=== PATIENT | female | born 1960 | race Caucasian/White ===

== ENCOUNTER 2016-07-19 12:10 | Observation (INO) | payer OTHER ==
[~2016-07-19] VITALS: Ht 160 cm; Wt 48.0 kg
[~2016-07-19 12:10] MED LIST: AMAN100C18 PO; CLON1TAB PO; FING1CAP PO; GABA800T PO; NAME10TA PO; OXCA300T PO; ROPI1TAB PO
[2016-07-19 12:50] VITALS: BP 124/60; PULSE 94; RESP 16; TEMP 101.1; O2SAT 98
[2016-07-19] MEDS ORDERED: SODIUM CHLOR 0.9% 1000 ML INJ 800 ML IV ONE (13:11)
[2016-07-19] MEDS ORDERED: SODIUM CHLOR 0.9% 1000 ML INJ 1,000 ML IV ONE (13:11)
[2016-07-19] MEDS ORDERED: ACETAMINOPHEN 325 MG TAB PO ONE (13:15)
--- NOTE | 2016-07-19 13:52 | RADRPT ---
EXAM DATE/TIME: 07/19/2016 13:40 [facility] COMPARISON: No previous studies available for comparison. INDICATIONS : Altered mental status. Slurred speech. RADIATION DOSE: 37.62 CTDIvol (mGy) MEDICAL HISTORY : Multiple sclerosis. SURGICAL HISTORY : Appendectomy. ENCOUNTER: Initial ACUITY: 1 day PAIN SCALE: 0/10 LOCATION: cranial TECHNIQUE: Multiple contiguous axial images were obtained of the head. Using automated exposure control and adj ustment of the mA and/or kV according to patient size, radiation dose was kept as low as reasonably a chievable to obtain optimal diagnostic quality images. FINDINGS: CEREBRUM: The ventricles are normal for age. No evidence of midline shift, mass lesion, hemorrhage or acute in farction. No extra-axial fluid collections are seen. POSTERIOR FOSSA: The cerebellum and brainstem are intact. The 4th ventricle is midline. The cerebellopontine angle i s unremarkable. EXTRACRANIAL: The visualized portion of the orbits is intact. SKULL: The calvaria is intact. No evidence of skull fracture. CONCLUSION: Normal examination for a patient of this age. Dave Holm MD on July 19, 2016 at 13:47 Board Certified Radiologist. This report was verified electronically.
[2016-07-19 14:28] LABS: AUTOMATED NEUTROPHIL # 5.3 TH/MM3 (1.8-7.7); BASOPHIL % 0.4 % (0.0-2.0); EOSINOPHIL % 0.1 % (0.0-4.0); HEMATOCRIT 38.1 % (35.0-46.0); LYMPHOCYTE # 1.3 TH/MM3 (1.0-4.8); MEAN CELL VOLUME 92.3 FL (80.0-100.0); MEAN CORPUSCULAR HEMOGLOBIN 31.1 PG (27.0-34.0); MEAN CORPUSCULAR HGB CONC 33.7 % (32.0-36.0); MONO % 26.7 % (0.0-8.0); NEUT % 58.8 % (16.0-70.0); PLATELET COUNT 233 TH/MM3 (150-450); RED BLOOD COUNT 4.13 MIL/MM3 (4.00-5.30); RED CELL DISTRIBUTION WIDTH 13.3 % (11.6-17.2)
[2016-07-19 14:31] LABS: APTT (PATIENT) 32.1 SEC (24.3-30.1); PROTHROMBIN TIME - PATIENT 11.1 SEC (9.8-11.6)
[2016-07-19 14:38] LABS: ALT (GPT) 33 U/L (10-53); ANION GAP 7 MEQ/L (5-15); AST (GOT) 25 U/L (15-37); BICARBONATE 29.3 MEQ/L (21.0-32.0); BLOOD UREA NITROGEN 9 MG/DL (7-18); CHLORIDE 101 MEQ/L (98-107); GLOMERULAR FILTRATION RATE 62 ML/MIN (>89); HEMO FLAGS AUTO DIFF; POTASSIUM 4.2 MEQ/L (3.5-5.1); SODIUM (NA) 137 MEQ/L (136-145)
[2016-07-19 14:40] LABS: ALKALINE PHOSPHATASE 120 U/L (45-117); TOTAL BILIRUBIN ADULT 0.3 MG/DL (0.2-1.0)
--- NOTE | 2016-07-19 14:40 | RADRPT ---
EXAM DATE/TIME: 07/19/2016 13:55 [facility] COMPARISON: No previous studies available for comparison. INDICATIONS : Fever, sore throat. Pt. has difficulty swallowing. MEDICAL HISTORY : None. SURGICAL HISTORY : None. ENCOUNTER: Initial ACUITY: 2 days PAIN SCORE: 0/10 LOCATION: Bilateral chest FINDINGS: A single view of the chest demonstrates the lungs to be symmetrically aerated without evidence of mas s, infiltrate or effusion. The cardiomediastinal contours are unremarkable. Osseous structures are intact. CONCLUSION: 1. No acute cardiopulmonary findings. Lenin Grajeda MD on July 19, 2016 at 14:35 Board Certified Radiologist. This report was verified electronically.
[2016-07-19 15:52] LABS: BANDS 37 % (0-6); METAMYELOCYTES 1 % (0-1); POLYS (SEG NEUTROPHILS) 29 % (16-70); SCAN/DIFF FINAL DIFF MANUAL; TOXIC GRANULATION 1+ (NORMAL); WBC DIFF SAMPLE 100
[2016-07-19 15:53] LABS: PLATELET MORPHOLOGY NORMAL (NORMAL); SLIDE REVIEW N; TOXIC VACUOLATION PRESENT (NONE SEEN)
--- NOTE | 2016-07-19 16:16 | EKG ---
Date Performed: 07/19/2016 Time Performed: 13:20:41 PTAGE: 56 years EKG: Sinus rhythm WITH SHORT AL INTERVAL BORDERLINE ECG INTERPRETATION BASED ON A DEFAULT AGE OF 40 YEARS COMPARED TO PRIOR ELECTROCARDIOGRAM, At most borderline nonspecific ST segment changes are seen. PREVIOUS TRACING : 07/08/2016 14.14 DOCTOR: Jorge Elise Interpretating Date/Time 07/19/2016 16:14:56
--- NOTE | 2016-07-19 16:39 | PD ---
HPI Chief Complaint: Altered Mental Status Time Seen by Provider: 13:31 Travel History International Travel<30 days: No Contact w/Intl Traveler<30days: No Traveled to known affect area: No History of Present Illness HPI 56-year-old female presents by ambulance from the halfway with altered mental status and slurred speech by report. Patient here has a fever of 101 but denies specific complaints. History is limited on initial evaluation. PFSH Past Medical History Narrative Medical By records Dementia: Yes Hypertension: Yes Neurologic: Yes (hx of ms) : 0 Past Surgical History Narrative Surgical By records Appendectomy: Yes Other Surgery: Yes (breast augmentation) Social History Alcohol Use: Yes (1/month) Tobacco Use: No Substance Use: No Allergies-Medications (Allergen,Severity, Reaction): Coded Allergies: No Known Allergies (Verified , 07/19/16) Reported Meds & Prescriptions Reported Meds & Active Scripts Active Reported Keppra (Levetiracetam) 500 Mg Tab 500 Mg PO BID Calcium + D3 (Calcium Carbonate-Cholecalciferol) 600-200 Mg-Unit Tab 1 Tab PO DAILY Ropinirole 1 Mg Tab 1 Mg PO TID Namenda (Memantine) 10 Mg Tab 10 Mg PO BID Gabapentin 800 Mg Tab 800 Mg PO BID Gilenya (Fingolimod) 0.5 Mg Cap PO DAILY PRN Amantadine (Amantadine HCl) 100 Mg Cap 100 Mg PO DAILY Clonazepam 1 Mg Tab 1 Mg PO HS Review of Systems ROS Limitations: Poor Historian Except as stated in HPI: all other systems reviewed are Neg Physical Exam Narrative GENERAL: Well-nourished, well-developed patient. SKIN: Warm and dry. HEAD: Normocephalic and atraumatic. EYES: No injection or drainage. ENT: No nasal drainage noted. Bilateral TMs clear, mild erythema noted to posterior oropharynx without exudate, uvula midline NECK: Supple, trachea midline. No meningeal signs CARDIOVASCULAR: Regular rate and rhythm RESPIRATORY: No increased effort. Clear to auscultation bilaterally, No accessory muscle use. GASTROINTESTINAL: Abdomen soft, non-tender, nondistended. NEUROLOGICAL: Awake and alert. Motor and sensory grossly within normal limits. Normal speech. Data Data Last Documented VS Vital Signs Date Time Temp Pulse Resp B/P Pulse Ox O2 Delivery O2 Flow Rate FiO2 07/19/16 12:50 101.1 94 16 124/60 98 Orders Electrocardiogram (07/19/16 13:11) Complete Blood Count With Diff (07/19/16 13:11) Comprehensive Metabolic Panel (07/19/16 13:11) Prothrombin Time / Inr (Pt) (07/19/16 13:11) Act Partial Throm Time (Ptt) (07/19/16 13:11) Lactic Acid Sepsis Protocol (07/19/16 13:11) Phosphorus (Po4) (07/19/16 13:11) Urinalysis - C+S If Indicated (07/19/16 13:11) Blood Culture (07/19/16 13:11) Chest, Single Ap (07/19/16 13:11) Blood Glucose (07/19/16 13:11) Ecg Monitoring (07/19/16 13:11) Iv Access Insert/Monitor (07/19/16 13:11) Oximetry (07/19/16 13:11) Acetaminophen (Tylenol) (07/19/16 13:15) Ct Brain W/O Iv Contrast(Rout) (07/19/16 13:11) Sodium Chlor 0.9% 1000 Ml Inj (Ns 1000 M (07/19/16 13:11) Sodium Chlor 0.9% 1000 Ml Inj (Ns 1000 M (07/19/16 13:11) Ammonia (07/19/16 13:11) Cath For Specimen (07/19/16 14:35) Vancomycin Inj (Vancomycin Inj) (07/19/16 17:05) Cefepime Inj (Maxipime Inj) (07/19/16 17:05) Influenzae A/B Antigen (07/19/16 17:05) Group A Rapid Strep Screen (07/19/16 17:05) Admit Order (Ed Use Only) (07/19/16 17:08) Labs Laboratory Tests Test 07/19/16 07/19/16 14:05 16:38 White Blood Count 9.0 TH/MM3 Red Blood Count 4.13 MIL/MM3 Hemoglobin 12.8 GM/DL Hematocrit 38.1 % Mean Corpuscular Volume 92.3 FL Mean Corpuscular Hemoglobin 31.1 PG Mean Corpuscular Hemoglobin 33.7 % Concent Red Cell Distribution Width 13.3 % Platelet Count 233 TH/MM3 Mean Platelet Volume 7.8 FL Neutrophils (%) (Auto) 58.8 % Lymphocytes (%) (Auto) 14.0 % Monocytes (%) (Auto) 26.7 % Eosinophils (%) (Auto) 0.1 % Basophils (%) (Auto) 0.4 % Neutrophils # (Auto) 5.3 TH/MM3 Lymphocytes # (Auto) 1.3 TH/MM3 Monocytes # (Auto) 2.4 TH/MM3 Eosinophils # (Auto) 0.0 TH/MM3 Basophils # (Auto) 0.0 TH/MM3 CBC Comment AUTO DIFF Differential Total Cells 100 Counted Neutrophils % (Manual) 29 % Band Neutrophils % 37 % Lymphocytes % 9 % Monocytes % 24 % Neutrophils # (Manual) 6.0 TH/MM3 Metamyelocytes 1 % Differential Comment FINAL DIFF MANUAL Toxic Granulation 1+ Toxic Vacuolation PRESENT Platelet Morphology Comment NORMAL Red Cell Morphology Comment NORMAL Prothrombin Time 11.1 SEC Prothromb Time International 1.0 RATIO Ratio Activated Partial 32.1 SEC Thromboplast Time Sodium Level 137 MEQ/L Potassium Level 4.2 MEQ/L Chloride Level 101 MEQ/L Carbon Dioxide Level 29.3 MEQ/L Anion Gap 7 MEQ/L Blood Urea Nitrogen 9 MG/DL Creatinine 0.93 MG/DL Estimat Glomerular Filtration 62 ML/MIN Rate Random Glucose 97 MG/DL Lactic Acid Level 0.9 mmol/L Calcium Level 9.2 MG/DL Phosphorus Level 3.3 MG/DL Total Bilirubin 0.3 MG/DL Aspartate Amino Transf 25 U/L (AST/SGOT) Alanine Aminotransferase 33 U/L (ALT/SGPT) Alkaline Phosphatase 120 U/L Ammonia LESS THAN 10 MCMOL/L Total Protein 7.6 GM/DL Albumin 4.2 GM/DL Urine Color LIGHT-YELLOW Urine Turbidity CLEAR Urine pH 7.0 Urine Specific [place] 1.006 Urine Protein NEG mg/dL Urine Glucose (UA) NEG mg/dL Urine Ketones NEG mg/dL Urine Occult Blood NEG Urine Nitrite NEG Urine Bilirubin NEG Urine Urobilinogen LESS THAN 2.0 MG/DL Urine Leukocyte Esterase NEG Urine RBC LESS THAN 1 /hpf Urine Mucus FEW /lpf Microscopic Urinalysis Comment CATH-CULT NOT IND MDM Medical Decision Making Medical Screen Exam Complete: Yes Emergency Medical Condition: Yes Medical Record Reviewed: Yes (past history confirmed) Interpretation(s) CBC & BMP Diagram 07/19/16 14:05 Last [address] 1/4/17 1311 Signed Impressions: Service Date/Time: Tuesday, July 19, 2016 13:40 - CONCLUSION: Normal examination for a patient of this age. Dave Holm MD Chest X-Ray 07/19/161310 Signed Impressions: Service Date/Time: Tuesday, July 19, 2016 13:55 - CONCLUSION: 1. No acute cardiopulmonary findings. Lenin Grajeda MD Differential Diagnosis UTI, intracranial, pneumonia, sepsis, hyponatremia.... Narrative Course Will check blood work, urinalysis, chest x-ray, CT brain and dose with IV fluid hydration and Tylenol and reevaluate Blood work reveals normal lactate and white count. Chest x-ray shows no source of infection. Awaiting urinalysis Patient's initial urinalysis was accidentally discarded so getting repeat UA took longer and this resulted in delay of admission Differential resulted with 37 bands. Given this and fever of 101 will dose with vancomycin and cefepime and place in observation so blood cultures can be monitored. Will add on strep and influenza given patient states she's been having URI symptoms additionally over the past couple of days. Patient agrees to observation and feeling better after tylenol and ivf Sepsis Criteria SIRS Criteria (2 or more): Temp > 100.9 or < 96.8, Heart rate over 90 Sepsis Criteria (SIRS+source): Infect source susp/known Physician Communication Physician Communication dr fonseca agrees to observation Diagnosis Primary Impression: Sepsis Qualified Code: A41.9 - Sepsis, due to unspecified organism Additional Impressions: Bandemia Upper respiratory infection Qualified Code: J06.9 - Upper respiratory tract infection, unspecified type Admitting Information Admitting Physician Requests: Observation Emmy Sinclair MD Jul 19, 2016 16:39
[2016-07-19 16:55] LABS: BLOOD, URINE NEG (NEG); COMMENT (UR) CATH-CULT NOT IND; CULTURE IF INDICATED CATH CULTURE NOT IND; GLUCOSE,URINE NEG (NEG); KETONE, URINE NEG (NEG); MUCUS URINE FEW /lpf (OCC); NITRITE,URINE NEG (NEG); URINE COLOR LIGHT-YELLOW (YELLW/STRAW)
[2016-07-19] MEDS ORDERED: CEFEPIME INJ 2,000 MG in SODIUM CHLORIDE 0.9% INJ 100 ML IV STA (17:05)
[2016-07-19] MEDS ORDERED: VANCOMYCIN INJ 1,000 MG in SODIUM CHLOR 0.9% 250 ML INJ 250 ML IV STA (17:05)
[2016-07-19] MEDS ORDERED: LEVE500 PO (17:27)
[2016-07-19] MEDS ORDERED: CALC600T10 PO (17:27)
[2016-07-19] MEDS ORDERED: SENNOSIDES 8.6 MG TAB PO PRN (18:30)
[2016-07-19] MEDS ORDERED: NALOXONE HCL 0.4 MG/ML AMP IV PRN (18:30)
[2016-07-19] MEDS ORDERED: MAGNESIUM HYDROXIDE SUSP 30 ML CUP PO PRN (18:30)
[2016-07-19] MEDS ORDERED: ACETAMINOPHEN 325 MG TAB PO PRN (18:30)
[2016-07-19] MEDS ORDERED: BISACODYL 10 MG SUPP PR PRN (18:30)
[2016-07-19] MEDS ORDERED: SODIUM CHLORIDE 0.9% FLUSH 5 ML FLUSH FLUSH PRN (18:30)
[2016-07-19 18:43] VITALS: BP 91/54; PULSE 70; RESP 17; O2SAT 98
[2016-07-19] MEDS: DOCUSATE SODIUM 100 MG CAP PO SCH (21:00)
[2016-07-19] MEDS: SODIUM CHLORIDE 0.9% FLUSH 5 ML FLUSH FLUSH SCH (21:42)
[2016-07-19] MEDS ORDERED: RESP: ALBUTEROL 2.5 MG/IPRATROPIUM 0.5 MG NEB (PRN) NEB (22:15)
--- NOTE | 2016-07-19 22:15 | HHI.HP ---
[facility] Primary [facility] Physician Unknown Admission Diagnosis fever Diagnoses: Chief Complaint: Urinary incontinence and cough Travel History International Travel<30 Days: No Contact w/Intl Traveler <30 Da: No Traveled to Known Affected Are: No History of Present Illness 56-year-old female with a history of MS presented to the ED with complaints of urinary incontinence, sore throat and cough for 2 days. Patient states for the last 2 days she has been trying to hold her urine output has been unable to and has had incontinent episodes, along with a sore throat and cough with sputum production. She states she did have a fever at home but does not know how high. Complains of loss of appetite and has been unable to eat for the last day or 2 with nausea. She denies any chest pain, short of breath, vomiting or diarrhea. She has not been on recent antibiotics. Current sees Dr. Patel for her MS Review of Systems Constitutional: COMPLAINS OF: Fever, DENIES: Chills, Dizziness Respiratory: COMPLAINS OF: Cough, Sputum production, DENIES: Wheezing, Shortness of breath Cardiovascular: DENIES: Chest pain, Lower Extremity Edema Gastrointestinal: COMPLAINS OF: Nausea, DENIES: Abdominal pain, Vomiting Genitourinary: COMPLAINS OF: Urinary incontinence, DENIES: Dysuria Musculoskeletal: DENIES: Back pain, Neck pain Integumentary: DENIES: Rash Hematologic/lymphatic: DENIES: Lymphadenopathy Immunologic/allergic: DENIES: Urticaria Past Family Social History Past Medical History MS- patient sees Dr. Patel Past Surgical History Breast augmentation Reported Medications Reported Meds & Active Scripts Active Reported Keppra (Levetiracetam) 500 Mg Tab 500 Mg PO BID Calcium + D3 (Calcium Carbonate-Cholecalciferol) 600-200 Mg-Unit Tab 1 Tab PO DAILY Ropinirole 1 Mg Tab 1 Mg PO TID Namenda (Memantine) 10 Mg Tab 10 Mg PO BID Gabapentin 800 Mg Tab 800 Mg PO BID Gilenya (Fingolimod) 0.5 Mg Cap PO DAILY PRN Amantadine (Amantadine HCl) 100 Mg Cap 100 Mg PO DAILY Clonazepam 1 Mg Tab 1 Mg PO HS Allergies: Coded Allergies: No Known Allergies (Verified , 07/19/16) Active Ordered Medications Current Medications Medications (Trade) Dose Ordered Sig/Feliberto Route Start Time Stop Time Status Last Admin (NS Flush) 2 ml UNSCH PRN FLUSH 07/19/16 18:30 (NS Flush) 2 ml BID FLUSH 07/19/16 21:00 07/19/16 21:42 (Tylenol) 650 mg Q4H PRN PO 07/19/16 18:30 (Dulcolax Supp) 10 mg DAILY PRN [place] 07/19/16 18:30 (Colace) 100 mg Q12H PO 07/19/16 21:00 (Milk Of Magnesia Liq) 30 ml Q12H PRN PO 07/19/16 18:30 (Senokot) 17.2 mg Q12H PRN PO 07/19/16 18:30 Naloxone HCl 0.4 mg 0.4 mg UNSCH PRN IV 07/19/16 18:30 (Maxipime Inj/NS Inj) 100 ml @ 200 mls/hr Q8H IV 07/20/16 06:00 UNV Family History Brother: Colon cancer Social History Patient denies any tobacco, alcohol or illicit drug use Physical Exam Vital Signs Vital Signs Date Time Temp Pulse Resp B/P Pulse Ox O2 Delivery O2 Flow Rate FiO2 07/19/16 18:43 70 17 91/54 98 Room Air 07/19/16 12:50 101.1 94 16 124/60 98 Physical Exam GENERAL: This is a well-nourished, well-developed patient, in no apparent distress. SKIN: No rashes, ecchymoses or lesions. Cool and dry. HEAD: Atraumatic. Normocephalic. EYES: Pupils equal round and reactive ENT: Nose without bleeding, purulent drainage or septal hematoma. Throat without erythema, tonsillar hypertrophy or exudate. Uvula midline. Airway patent. NECK: Trachea midline. No JVD . CARDIOVASCULAR: Regular rate and rhythm without murmurs, gallops, or rubs. RESPIRATORY: Diminished bilateral bases. No wheezes. GASTROINTESTINAL: Abdomen soft, non-tender, nondistended. No hepato-splenomegaly , or palpable masses. No guarding. MUSCULOSKELETAL: Extremities without clubbing, cyanosis, or edema. No joint tenderness, effusion, or edema noted. No calf tenderness. NEUROLOGICAL: Awake and alert. Cranial nerves II through XII intact. Motor and sensory grossly within normal limits. Five out of 5 muscle strength in all muscle groups. Normal speech. Laboratory Laboratory Tests Test 07/19/16 07/19/16 14:05 16:38 White Blood Count 9.0 Red Blood Count 4.13 Hemoglobin 12.8 Hematocrit 38.1 Mean Corpuscular Volume 92.3 Mean Corpuscular Hemoglobin 31.1 Mean Corpuscular Hemoglobin 33.7 Concent Red Cell Distribution Width 13.3 Platelet Count 233 Mean Platelet Volume 7.8 Neutrophils (%) (Auto) 58.8 Lymphocytes (%) (Auto) 14.0 Monocytes (%) (Auto) 26.7 Eosinophils (%) (Auto) 0.1 Basophils (%) (Auto) 0.4 Neutrophils # (Auto) 5.3 Lymphocytes # (Auto) 1.3 Monocytes # (Auto) 2.4 Eosinophils # (Auto) 0.0 Basophils # (Auto) 0.0 CBC Comment AUTO DIFF Differential Total Cells 100 Counted Neutrophils % (Manual) 29 Band Neutrophils % 37 Lymphocytes % 9 Monocytes % 24 Neutrophils # (Manual) 6.0 Metamyelocytes 1 Differential Comment FINAL DIFF MANUAL Toxic Granulation 1+ Toxic Vacuolation PRESENT Platelet Morphology Comment NORMAL Red Cell Morphology Comment NORMAL Prothrombin Time 11.1 Prothromb Time International 1.0 Ratio Activated Partial 32.1 Thromboplast Time Sodium Level 137 Potassium Level 4.2 Chloride Level 101 Carbon Dioxide Level 29.3 Anion Gap 7 Blood Urea Nitrogen 9 Creatinine 0.93 Estimat Glomerular Filtration 62 Rate Random Glucose 97 Lactic Acid Level 0.9 Calcium Level 9.2 Phosphorus Level 3.3 Total Bilirubin 0.3 Aspartate Amino Transf 25 (AST/SGOT) Alanine Aminotransferase 33 (ALT/SGPT) Alkaline Phosphatase 120 Ammonia LESS THAN 10 Total Protein 7.6 Albumin 4.2 Urine Color LIGHT-YELLOW Urine Turbidity CLEAR Urine pH 7.0 Urine Specific [place] 1.006 Urine Protein NEG Urine Glucose (UA) NEG Urine Ketones NEG Urine Occult Blood NEG Urine Nitrite NEG Urine Bilirubin NEG Urine Urobilinogen LESS THAN 2.0 Urine Leukocyte Esterase NEG Urine RBC LESS THAN 1 Urine Mucus FEW Microscopic Urinalysis Comment CATH-CULT NOT IND Date/Time Procedure Status Source Growth 07/19/16 18:00 Group A Streptococcus Screen (LISA) - Final Complete Throat 07/19/16 18:00 Group A Streptococcus Screen Received Throat Pending 07/19/16 14:05 Aerobic Blood Culture Received Blood Peripheral Pending 07/19/16 14:05 Anaerobic Blood Culture Received Blood Peripheral Pending Result Diagram: 07/19/16 1405 07/19/16 1405 Imaging Last Impressions Head CT 07/19/16 1311 Signed Impressions: Service Date/Time: Tuesday, July 19, 2016 13:40 - CONCLUSION: Normal examination for a patient of this age. Dave Holm MD Chest X-Ray 07/19/16 1311 Signed Impressions: Service Date/Time: Tuesday, July 19, 2016 13:55 - CONCLUSION: 1. No acute cardiopulmonary findings. Lenin Grajeda MD Assessment and Plan Problem List: (1) Upper respiratory infection ICD Code: J06.9 Status: Acute (2) Bandemia ICD Code: D72.825 Status: Acute (3) MS (multiple sclerosis) ICD Code: G35 Status: Acute Assessment and Plan 56-year-old female with a history of MS presented with URI Chest x-ray: Unremarkable -Throat culture and flu pending -Sputum culture ordered -DuoNeb's every 6/ and prn Bandemia Labs reviewed: Band neutrophils 37, lactic acid .9 -Blood cultures pending -CBC in a.m. -Broad-spectrum antibiotic started cefepime every 8 -Vancomycin IV given 1 the ED Urinary incontinence, patient with a history of MS UA negative -Consult neurology for recommendations, patient and Dr. Patel DVT prophylaxis: SCDs Written by Laura THOMAS, acting as scribe for Dr. Lowry on 07/19/16 at 2120. The documentation accurately reflects the work performed [id number] and decisions made by me and the physician Dr Lowry on 07/19/16. The documentation accurately reflects the work performed [id number] by me Dr Lowry on 07/19/16. Problem Qualifiers (1) Upper respiratory infection: Qualified Code: J06.9 - Upper respiratory tract infection, unspecified type Laura Pickett Jul 19, 2016 22:15 Annabel Lowry MD Jul 20, 2016 04:51
[2016-07-19 22:49] VITALS: BP 93/58; PULSE 72
[2016-07-19 23:00] VITALS: BP 85/53; PULSE 70
[2016-07-20] VITALS (10 sets, daily range): BP systolic 87–111; BP diastolic 52–58; PULSE 68–90; RESP 18–20; TEMP 96.5–99.1; O2SAT 96–100
[2016-07-20] MEDS: RESP: ALBUTEROL 2.5 MG/IPRATROPIUM 0.5 MG NEB (SCH) NEB ×3 (03:58→17:55)
[2016-07-20] MEDS: CEFEPIME INJ 2,000 MG in SODIUM CHLORIDE 0.9% INJ 100 ML IV SCH ×3 (06:19→22:18)
[2016-07-20 07:49] LABS: HEMATOCRIT 32.4 % (35.0-46.0); MEAN CELL VOLUME 92.4 FL (80.0-100.0); MEAN CORPUSCULAR HEMOGLOBIN 31.3 PG (27.0-34.0); MEAN CORPUSCULAR HGB CONC 33.8 % (32.0-36.0); PLATELET COUNT 202 TH/MM3 (150-450); RED BLOOD COUNT 3.51 MIL/MM3 (4.00-5.30); RED CELL DISTRIBUTION WIDTH 13.5 % (11.6-17.2); WHITE BLOOD COUNT 5.1 TH/MM3 (4.0-11.0)
[2016-07-20 08:04] LABS: HEMO FLAGS AUTO DIFF
[2016-07-20 08:26] LABS: BICARBONATE 24.7 MEQ/L (21.0-32.0); POTASSIUM 3.4 MEQ/L (3.5-5.1)
[2016-07-20] MEDS: DOCUSATE SODIUM 100 MG CAP PO SCH ×2 (09:00→22:17)
[2016-07-20 09:18] LABS: BANDS 4 % (0-6); NEUTROPHIL # MANUAL DIFF 2.7 TH/MM3 (1.8-7.7); POLYS (SEG NEUTROPHILS) 49 % (16-70); WBC DIFF SAMPLE 100
[2016-07-20 09:19] LABS: PLATELET ESTIMATE SMEAR NORMAL (NORMAL); PLATELET MORPHOLOGY NORMAL (NORMAL); SCAN/DIFF FINAL DIFF MANUAL
[2016-07-20] MEDS: SODIUM CHLORIDE 0.9% FLUSH 5 ML FLUSH FLUSH SCH ×2 (09:52→22:17)
--- NOTE | 2016-07-20 11:14 | HHI.PR ---
Subjective Remarks Patient laying in bed, denied dizziness or lightheaded or any seizure episodes, no dysuria, she has a sore throat no fever overnight Last fever of 101.1 on July 19 at noon Objective Vitals Vital Signs Date Time Temp Pulse Resp B/P Pulse Ox O2 Delivery O2 Flow Rate FiO2 07/20/16 08:00 98.3 71 18 90/54 96 07/20/16 03:44 97.7 71 20 90/52 99 07/20/16 01:31 68 07/20/16 00:35 96.5 72 18 87/55 98 07/20/16 00:19 99.1 72 18 91/53 100 Room Air 07/19/16 23:00 70 85/53 07/19/16 22:49 72 93/58 07/19/16 18:43 70 17 91/54 98 Room Air 07/19/16 12:50 101.1 94 16 124/60 98 I/O 07/19/16 07/19/16 07/19/16 07/20/16 07/20/16 07/20/16 06:59 14:59 22:59 06:59 14:59 22:59 Intake Total 240 ml Output Total 1 ml Balance 239 ml Intake Oral 240 ml Output Stool Total 1 ml # Voids 5 Result Diagram: 07/20/16 0640 07/20/16 0640 Objective Remarks GENERAL: This is a well-nourished, well-developed patient, in no apparent distress. SKIN: No rashes, warm and dry HEAD: Atraumatic. Normocephalic. EYES: Pupils equal round and reactive. Extraocular motions intact. No scleral icterus. ENT: Nose without bleeding, or drainage, Airway patent. NECK: Trachea midline. Supple CARDIOVASCULAR: Regular rate and rhythm without murmurs, gallops, or rubs. RESPIRATORY: Fair air entry bilaterally. No wheezes, rales, or rhonchi. GASTROINTESTINAL: Abdomen soft, non-tender, nondistended. Positive bowel sounds MUSCULOSKELETAL: Extremities without clubbing, cyanosis, or edema. Pedal pulses appreciated NEUROLOGICAL: Awake and alert. Moves all extremity. Normal speech.no focal neurological deficit A/P Problem List: (1) Upper respiratory infection ICD Code: J06.9 Status: Acute (2) Bandemia ICD Code: D72.825 Status: Acute (3) MS (multiple sclerosis) ICD Code: G35 Status: Acute Assessment and Plan 56-year-old female with a history of MS [facility] with a history of uncontrolled seizure over there also questionable fever and upper respiratory infection Episode of uncontrolled seizure patient has a history of MS follow up with Dr. Patel Per the parents who are at the bedside she has been tried on different antiseizure medication however it has not been working, awaiting neurology Dr. Patel auscultation URI Chest x-ray: Unremarkable -Throat culture and flu negative for group A streptococcal -Sputum culture pending -DuoNeb's every 6/ and prn Bandemia: Resolved Labs reviewed: Band neutrophils 37 which become for today, lactic acid 0.9 -Blood cultures pending -CBC today reviewed -Broad-spectrum antibiotic started cefepime every 8 -Vancomycin IV given 1 the ED, will hold on Vanco and monitor blood culture Urinary incontinence, patient with a history of MS UA negative -Consult neurology for recommendations, patient and Dr. Patel DVT prophylaxis: SCDs Problem Qualifiers (1) Upper respiratory infection: Qualified Code: J06.9 - Upper respiratory tract infection, unspecified type Abelardo Casey MD Jul 20, 2016 11:14
--- NOTE | 2016-07-20 16:57 | MB ---
cc: LENORA KOENIG MD DATE OF CONSULTATION 07/20/16 HISTORY OF PRESENT ILLNESS She is a 56-year-old woman seen in neurological status in regard to multiple sclerosis and neurologic change. She came from the rehab facility. Apparently, she has been there for a couple of weeks. Prior to that, she had been living at home but had difficulty taking care of herself and her parents who live in the area went to the assisted living facility. She had been in the hospital recently apparently with multiple sclerosis exacerbation or seizure activity. It is difficult to gather a very precise history. Yesterday apparently she was acting strange and may have had some seizure activity. She fell down and she says she just did not get help to get her in the bathroom. She has had some apparent incontinence of urine. She was brought to the hospital and noted to have some fever and she has been treated for an upper respiratory infection. The patient reportedly takes Gilenya. She has been taking Keppra, but this was either not effective or causing some problems. Therefore, she was given oxcarbazepine and did not tolerate the medication. It appears that Dr. Patel was starting her on Vimpat but this was not cleared by the insurance. She reportedly takes Gilenya 0.5 mg daily for the multiple sclerosis. She is on Amantadine and clonazepam. NEUROLOGIC EXAM On exam, the patient is alert, pleasant. She is grossly oriented but vague. Ocular movements are full. Visual siddiqi full. There is no facial weakness. There is mild trembling of upper extremities, mild difficulty with coordination on the bedside exam. She moves all four extremities and she resists moderately. I did not get her out of bed. Reflexes were present, mildly brisk, but plantar responses were equivocal. Position sense preserved in the distal lower extremities. Temperature yesterday up to 101.1. LABORATORY DATA Labs were reviewed. Chemistry fairly benign. WBC from yesterday 9.0, hemoglobin 12.8. Urinalysis negative. ASSESSMENT AND PLAN 1. Multiple sclerosis. Probably stable. 2. Seizure-like activity. Somewhat vague history of seizures. Apparently, Dr. Patel was starting her on Vimpat and we will start this now and hopefully she will be able to continue the Vimpat. For the time being, continue her Keppra. Would resume the Gilenya and discussed with the nursing staff as this medication may be used as brought in medication by the patient; uncertain if this is available in the hospital or not. When stable medically, she probably can be discharged back to rehab and be followed by Dr. Patel. Thank you for asking us to assist in her care. MD JYOTHI Arias/ /2:55 PM /4:42 PM
[2016-07-20] MEDS: LACOSAMIDE 50 MG TAB PO SCH (22:38)
[2016-07-21 00:17] VITALS: BP 106/58; PULSE 78; RESP 20; TEMP 98.9; O2SAT 99
[2016-07-21 03:50] VITALS: BP 108/58; PULSE 75; RESP 20; TEMP 98.8; O2SAT 98
[2016-07-21] MEDS: CEFEPIME INJ 2,000 MG in SODIUM CHLORIDE 0.9% INJ 100 ML IV SCH (06:14)
[2016-07-21] MEDS: DOCUSATE SODIUM 100 MG CAP PO SCH (09:00)
[2016-07-21] MEDS ORDERED: FINGOLIMOD 0.5 MG PO SCH (09:00)
[2016-07-21 09:31] VITALS: BP 125/64; PULSE 78; RESP 17; O2SAT 100
[2016-07-21] MEDS ORDERED: LACO50 PO (09:41)
[2016-07-21] MEDS: RESP: ALBUTEROL 2.5 MG/IPRATROPIUM 0.5 MG NEB (SCH) NEB ×2 (10:00→15:14)
[2016-07-21] MEDS ORDERED: levETIRAcetam 500 MG TAB PO SCH (10:15)
[2016-07-21] MEDS: SODIUM CHLORIDE 0.9% FLUSH 5 ML FLUSH FLUSH SCH (10:17)
[2016-07-21] MEDS: LACOSAMIDE 50 MG TAB PO SCH (10:17)
[2016-07-21 10:22] VITALS: PULSE 72
--- NOTE | 2016-07-21 11:17 | HHI.PR ---
Subjective Remarks Doing well, stable plan for discharge today Objective Vitals Vital Signs Date Time Temp Pulse Resp B/P Pulse Ox O2 Delivery O2 Flow Rate FiO2 07/21/16 10:22 72 07/21/16 09:31 78 17 125/64 100 07/21/16 03:50 98.8 75 20 108/58 98 07/21/16 00:17 98.9 78 20 106/58 99 07/20/16 20:31 86 07/20/16 20:16 98.9 90 20 111/54 100 07/20/16 18:32 79 07/20/16 16:17 97.0 75 18 101/58 99 07/20/16 12:37 97.4 80 18 107/55 100 I/O 07/20/16 07/20/16 07/20/16 07/21/16 07/21/16 07/21/16 07:00 15:00 23:00 07:00 15:00 23:00 Intake Total 720 ml 240 ml Output Total 1 ml Balance 719 ml 240 ml Intake Oral 720 ml 240 ml Output Stool Total 1 ml # Voids 8 2 1 # Bowel Movements 2 Result Diagram: 07/20/16 0640 07/20/16 0640 Objective Remarks GENERAL: This is a well-nourished, well-developed patient, in no apparent distress. SKIN: No rashes, warm and dry HEAD: Atraumatic. Normocephalic. EYES: Pupils equal round and reactive. Extraocular motions intact. No scleral icterus. ENT: Nose without bleeding, or drainage, Airway patent. NECK: Trachea midline. Supple CARDIOVASCULAR: Regular rate and rhythm without murmurs, gallops, or rubs. RESPIRATORY: Fair air entry bilaterally. No wheezes, rales, or rhonchi. GASTROINTESTINAL: Abdomen soft, non-tender, nondistended. Positive bowel sounds MUSCULOSKELETAL: Extremities without clubbing, cyanosis, or edema. Pedal pulses appreciated NEUROLOGICAL: Awake and alert. Moves all extremity. Normal speech.no focal neurological deficit A/P Problem List: (1) Upper respiratory infection ICD Code: J06.9 Status: Acute (2) Bandemia ICD Code: D72.825 Status: Acute (3) MS (multiple sclerosis) ICD Code: G35 Status: Acute Assessment and Plan 56-year-old female with a history of MS presented from the long-term with a history of uncontrolled seizure over there also questionable fever and upper respiratory infection Episode of uncontrolled seizure patient has a history of MS follow up with Dr. Patel Per the parents who are at the bedside she has been tried on different antiseizure medication however it has not been working, awaiting neurology Dr. Patel auscultation URI Chest x-ray: Unremarkable -Throat culture and flu negative for group A streptococcal -Sputum culture pending -DuoNeb's every 6/ and prn Bandemia: Resolved Labs reviewed: Band neutrophils 37 which become for today, lactic acid 0.9 -Blood cultures pending -CBC today reviewed -Broad-spectrum antibiotic started cefepime every 8 -Vancomycin IV given 1 the ED, will hold on Vanco and monitor blood culture Urinary incontinence, patient with a history of MS UA negative -Consult neurology for recommendations, patient and Dr. Patel DVT prophylaxis: SCDs Problem Qualifiers (1) Upper respiratory infection: Qualified Code: J06.9 - Upper respiratory tract infection, unspecified type Abelardo Casey MD Jul 21, 2016 11:17
--- NOTE | 2016-07-21 17:47 | HHI.PR ---
Review/Management Daily Summary seen this am before discharged, was stable, no seizures and no acute neuro follows with dr Patel Subjective Subjective Comments No acute events reported No headache No chest pain No dyspnea Allergies Allergies Coded Allergies No Known Allergies (Verified07/19/16) Exam I&O / VS 07/20/16 07/20/16 07/21/16 15:00 23:00 07:00 Intake Total 720 ml 240 ml Output Total 1 ml Balance 719 ml 240 ml Intake Oral 720 ml 240 ml Output Stool Total 1 ml # Voids 8 2 # Bowel Movements 2 Vital Signs Date Time Temp Pulse Resp B/P Pulse Ox O2 Delivery O2 Flow Rate FiO2 07/21/16 10:22 72 07/21/16 09:31 78 17 125/64 100 07/21/16 03:50 98.8 75 20 108/58 98 07/21/16 00:17 98.9 78 20 106/58 99 07/20/16 20:31 86 07/20/16 20:16 98.9 90 20 111/54 100 07/20/16 18:32 79 Objective Micro and Labs Date/Time Procedure Status Source Growth 07/19/16 18:00 Group A Streptococcus Screen - Final Complete Throat NO GP A BETA STREP ISOLATED. 07/19/16 18:00 Group A Streptococcus Screen (LISA) - Final Complete Throat 07/19/16 14:05 Aerobic Blood Culture - Preliminary Resulted Blood Peripheral NO GROWTH IN 2 DAYS 07/19/16 14:05 Anaerobic Blood Culture - Preliminary Resulted Blood Peripheral NO GROWTH IN 2 DAYS Ida Hurd MD Jul 21, 2016 17:47
--- NOTE | 2016-07-26 14:33 | HHI.DS ---
Discharge Summary Admission Date Jul 19, 2016 at 17:10 Discharge Date: Jul 21, 2016 Admitting Diagnosis fever (1) Upper respiratory infection ICD Code: J06.9 (2) Bandemia ICD Code: D72.825 (3) MS (multiple sclerosis) ICD Code: G35 Procedures None Brief History - From Admission 56-year-old female with a history of MS presented to the ED with complaints of urinary incontinence, sore throat and cough for 2 days. Patient states for the last 2 days she has been trying to hold her urine output has been unable to and has had incontinent episodes, along with a sore throat and cough with sputum production. She states she did have a fever at home but does not know how high. Complains of loss of appetite and has been unable to eat for the last day or 2 with nausea. She denies any chest pain, short of breath, vomiting or diarrhea. She has not been on recent antibiotics. Current sees Dr. Patel for her MS PE at Discharge GENERAL: This is a well-nourished, well-developed patient, in no apparent distress. SKIN: No rashes, warm and dry HEAD: Atraumatic. Normocephalic. EYES: Pupils equal round and reactive. Extraocular motions intact. No scleral icterus. ENT: Nose without bleeding, or drainage, Airway patent. NECK: Trachea midline. Supple CARDIOVASCULAR: Regular rate and rhythm without murmurs, gallops, or rubs. RESPIRATORY: Fair air entry bilaterally. No wheezes, rales, or rhonchi. GASTROINTESTINAL: Abdomen soft, non-tender, nondistended. Positive bowel sounds MUSCULOSKELETAL: Extremities without clubbing, cyanosis, or edema. Pedal pulses appreciated NEUROLOGICAL: Awake and alert. Moves all extremity. Normal speech.no focal neurological deficit Hospital Course 56-year-old female with a history of MS presented from the assisted with a history of uncontrolled seizure over there also questionable fever and upper respiratory infection Episode of uncontrolled seizure patient has a history of MS follow up with Dr. Patel Per the parents who are at the bedside she has been tried on different antiseizure medication however it has not been working, awaiting neurology Dr. Patel auscultation URI Chest x-ray: Unremarkable -Throat culture and flu negative for group A streptococcal -Sputum culture pending -DuoNeb's every 6/ and prn Bandemia: Resolved Labs reviewed: Band neutrophils 37 which become for today, lactic acid 0.9 -Blood cultures pending -CBC today reviewed -Broad-spectrum antibiotic started cefepime every 8 -Vancomycin IV given 1 the ED, will hold on Vanco and monitor blood culture Urinary incontinence, patient with a history of MS UA negative -Consult neurology for recommendations, patient and Dr. Patel DVT prophylaxis: SCDs [id number] encounter performed with the patient on discharge day, as well as physical exam, summary of hospitalization course and postdischarge plan has been D/W the patient. D/W nurse Discharge medications reviewed and printed and signed, post discharge follow up visit with PCP and other specialist as well as Brief hospital course and discharge summary has been placed. Pt Condition on Discharge: Good Discharge Disposition: Discharge to SNF Discharge Time: > 30 minutes Discharge Instructions DIET: Follow Instructions for: Heart Healthy Diet Activities you can perform: See Additionl Instruction Other Activity Instructions: per PT at rehab New Medications: Lacosamide (Vimpat) 50 Mg Tab 50 MG PO BID seizure #60 TAB Continued Medications: Amantadine (Amantadine) 100 Mg Cap 100 MG PO DAILY #30 Ref 0 CAP Calcium Carbonate-Cholecalciferol (Calcium + D3) 600-200 Mg-Unit Tab 1 TAB PO DAILY TAB Clonazepam (Clonazepam) 1 Mg Tab 1 MG PO HS #60 Ref 0 TAB Fingolimod (Gilenya) 0.5 Mg Cap PO DAILY PRN MUSCLE SPASM Gabapentin (Gabapentin) 800 Mg Tab 800 MG PO BID #90 Ref 0 TAB Levetiracetam (Keppra) 500 Mg Tab 500 MG PO BID Control Seizures #60 Ref 0 TAB Memantine (Namenda) 10 Mg Tab 10 MG PO BID Alzheimer Disease #30 Ref 0 TAB Ropinirole (Ropinirole) 1 Mg Tab 1 MG PO TID #90 Ref 0 TAB Abelardo Casey MD Jul 26, 2016 14:33
== END 2016-07-21 17:40 | disposition home or self-care (01) ==
LOC: NEDAMB 12:10 → NEDA 17:10 → NEPGCP 07-20 00:28
PROVIDERS: ADMIT Hospitalist; ATTEND Hospitalist
DX: J06.9 Acute upper respiratory infection, unspecified (principal); D72.825 Bandemia; G35 Multiple sclerosis; R32 Unspecified urinary incontinence; R41.82 Altered mental status, unspecified; R47.81 Slurred speech; F03.90 Unspecified dementia, unspecified severity, without behavioral disturbance, psychotic disturbance, mood disturbance, and anxiety; I10 Essential (primary) hypertension; R50.9 Fever, unspecified; R56.9 Unspecified convulsions
CPT/HCPCS: 70450; 71010; 80048; 80053; 81001; 82140; 82948; 83605; 84100; 85007; 85027; 85610; 85730; 87040; 87081; 87880; 93005; 94640; 94664; 96360; 96361; 99285; G0378; J0692; J3370; J7030; J7050